=== PATIENT | male | born 1945 | race Caucasian/White ===

== ENCOUNTER 2021-02-21 10:08 | Observation (INO) | payer MEDICARE, OTHER ==
[2021-02-21] MEDS ORDERED: Fentanyl 100 MCG/2 ML VIAL ONE (10:36)
[2021-02-21 14:13] LABS: Troponin I 0.019 ng/mL (< 0.028)
[2021-02-21] MEDS ORDERED: Acetaminophen 325 MG TAB PO PRN (15:55)
[2021-02-21] MEDS ORDERED: Ondansetron ODT 4 MG TAB PO PRN (15:55)
[2021-02-21] MEDS ORDERED: Acetaminophen 650 MG Suppository PR PRN (15:55)
[2021-02-21] MEDS ORDERED: Ondansetron PF 4 MG/2 ML Vial IVP PRN (15:55)
[2021-02-21] MEDS ORDERED: Benzonatate 100 MG CAP PO PRN (16:03)
[2021-02-21] MEDS ORDERED: cefTRIAXone\\ROCEPHIN 1 GM VIAL ONE (16:28)
[2021-02-21] MEDS ORDERED: Sodium Chloride 0.9% 1,000 ML IV SCH (16:45)
[2021-02-21] MEDS: cefTRIAXone\\ROCEPHIN 1 GM in Sodium Chloride 0.9% 100 ML IVPB SCH (17:41)
[2021-02-21 17:47] LABS: Troponin I 0.011 ng/mL (< 0.028)
[2021-02-21 18:21] VITALS: BMI 34.6
[2021-02-21] MEDS: Azithromycin 500 MG in Sodium Chloride 0.9% 250 ML 250 ML IVPB SCH (20:46)
[2021-02-21] MEDS: Ibuprofen 200 MG TAB PO PRN (21:16)
[2021-02-21] MEDS: Atorvastatin Calcium 20 MG TAB PO SCH (21:17)
[2021-02-22 01:34] LABS: SARS-CoV-2 PCR by NAA Not Detected (NotDetected)
[2021-02-22] MEDS: Ibuprofen 200 MG TAB PO PRN (01:37)
[2021-02-22 04:08] LABS: #Basophils 0.1 thou/uL (0.0-0.2); #Eosinphils 0.1 thou/uL (0.0-0.7); #Monocytes 2.3 thou/uL (0.11-0.59); %Basophils 0.4 % (0.0-1.0); %Eosinophils 0.5 % (0.0-10.0); %Lymphocytes 11.8 % (21.0-51.0); %Monocytes 14.2 % (0.0-10.0); %Neutrophils 73.1 % (42.0-75.0); Mean Corpuscular HGB CONC 33.7 g/dL (32.0-36.0); Mean Corpuscular Hemoglobin 32.2 pg (27.0-31.0); Mean Corpuscular Volume 95.5 fL (78.0-98.0); Mean Platelet Volume 7.3 fL (7.4-10.4); Platelet Count 191 thou/uL (130-400); RBC Distribution Width 12.7 % (11.5-14.5); Red Blood Cell (RBC) Count 4.04 mill/uL (4.70-6.10); White Blood Cell (WBC) Count 16.5 thou/uL (4.8-10.8)
[2021-02-22 04:10] LABS: Anion Gap 10 mmol/L (10-20); BUN (Urea Nitrogen) 14 mg/dL (8.4-25.7); Calc. Creatinine Clearance 115 mL/min (70-130); Calcium 8.4 mg/dL (7.8-10.44); Carbon Dioxide 28 mmol/L (23-31); Chloride 98 mmol/L (98-107); Glucose 108 mg/dL (83-110); Potassium 3.6 mmol/L (3.5-5.1); Sodium 132 mmol/L (136-145)
[2021-02-22] MEDS: Azithromycin 500 MG in Sodium Chloride 0.9% 250 ML 250 ML IVPB SCH (17:08)
[2021-02-22] MEDS: cefTRIAXone\\ROCEPHIN 1 GM in Sodium Chloride 0.9% 100 ML IVPB SCH (19:33)
[2021-02-22] MEDS: Atorvastatin Calcium 20 MG TAB PO SCH (21:40)
[2021-02-23] MEDS ORDERED: Non-Formulary Item 1 EACH (Albuterol Sulfate [Albuterol Sulfate Hfa] 8.5 GM Hfa.Aer.Ad) IH PRN (08:46)
[2021-02-23] MEDS ORDERED: Fluticasone Propionate Nasal Spray 16 gm Bottle NASAL PRN ×2 (08:46→08:58)
[2021-02-23] MEDS ORDERED: Losartan 25 MG TAB PO SCH (09:00)
[2021-02-23] MEDS ORDERED: Aspirin 81 mg Enteric Coated Tablet PO SCH ×2 (09:00)
[2021-02-23] MEDS ORDERED: Non-Formulary Item 1 EACH (Ubidecarenone [Co Q-10] 200 MG Capsule) PO SCH (09:00)
[2021-02-23] MEDS ORDERED: Albuterol 200 PUFF (6.7GM INHALER) INH PRN (09:00)
[2021-02-23] MEDS ORDERED: Non-Formulary Item 1 EACH (Omeprazole Magnesium [Omeprazole Magnesium] 20 MG Capsule.Dr) PO SCH (09:00)
[2021-02-23] MEDS ORDERED: Non-Formulary Item 1 EACH (Tiotropium [Spiriva Handihaler] 18 MCG Box) INH SCH (09:00)
[2021-02-23] MEDS ORDERED: Isosorbide Mononitrate 20 MG TAB PO SCH (09:00)
[2021-02-23] MEDS ORDERED: Ipratropium Bromide 2.5 ml Neb NEB SCH (13:00)
[2021-02-23] MEDS ORDERED: Regadenoson 0.4 MG/5 ML SYRINGE ONE (15:03)
[2021-02-23 15:09] LABS: #Eosinphils 0.3 thou/uL (0.0-0.7); Mean Corpuscular Volume 95.5 fL (78.0-98.0); RBC Distribution Width 12.5 % (11.5-14.5)
[2021-02-23 15:13] LABS: #Lymphocytes 1.9 thou/uL (1.20-3.40); #Monocytes 1.2 thou/uL (0.11-0.59); %Basophils 0.1 % (0.0-1.0); %Eosinophils 2.4 % (0.0-10.0); %Lymphocytes 16.4 % (21.0-51.0); %Monocytes 10.2 % (0.0-10.0); Hemoglobin 14.3 g/dL (14.0-18.0); Mean Corpuscular HGB CONC 33.7 g/dL (32.0-36.0); Mean Corpuscular Hemoglobin 32.2 pg (27.0-31.0); Mean Platelet Volume 7.4 fL (7.4-10.4); Platelet Count 219 thou/uL (130-400); Red Blood Cell (RBC) Count 4.44 mill/uL (4.70-6.10); White Blood Cell (WBC) Count 11.3 thou/uL (4.8-10.8)
[2021-02-23 15:31] LABS: Anion Gap 11 mmol/L (10-20); BUN (Urea Nitrogen) 12 mg/dL (8.4-25.7); Calc. Creatinine Clearance 124 mL/min (70-130); Calcium 8.8 mg/dL (7.8-10.44); Carbon Dioxide 28 mmol/L (23-31); Chloride 100 mmol/L (98-107); Glucose 142 mg/dL (83-110); Potassium 3.8 mmol/L (3.5-5.1); Sodium 135 mmol/L (136-145)
[2021-02-23 16:49] VITALS: BP 142/64; TEMP 97.9
[2021-02-23] MEDS: cefTRIAXone\\ROCEPHIN 1 GM in Sodium Chloride 0.9% 100 ML IVPB SCH (16:53)
== END 2021-02-23 16:52 | disposition home or self-care (01) ==
LOC: ERS 10:08 → ERHOLD 13:20 → 2NO 18:08
PROVIDERS: ADMIT Internal Medicine; ATTEND Internal Medicine
DX: R07.81 Pleurodynia (principal); D72.829 Elevated white blood cell count, unspecified; I25.10 Atherosclerotic heart disease of native coronary artery without angina pectoris; K21.9 Gastro-esophageal reflux disease without esophagitis; I10 Essential (primary) hypertension; E78.5 Hyperlipidemia, unspecified; J44.9 Chronic obstructive pulmonary disease, unspecified; Z85.118 Personal history of other malignant neoplasm of bronchus and lung; Z79.82 Long term (current) use of aspirin; Z79.899 Other long term (current) drug therapy; Z88.8 Allergy status to other drugs, medicaments and biological substances; Z91.018 Allergy to other foods; Z95.5 Presence of coronary angioplasty implant and graft; Z90.2 Acquired absence of lung [part of]; Z20.822 Contact with and (suspected) exposure to COVID-19
CPT/HCPCS: 71275; 78452; 80048 ×2; 84145; 84484; 85025 ×2; 87040; 93005; 93017; 96374; 99285; A9500; U0003; U0005; 36415; G0378; J0456; J0696; J2785; J3010; J3490; J7050